=== PATIENT | female | born 2000 | race Caucasian/White ===

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

== ENCOUNTER 2018-03-10 09:23 | Emergency (ER) | payer SELFPAY ==
[~2018-03-10] VITALS: Wt 56.0 kg
[~2018-03-10 09:23] MED LIST changes: +HYDR-4011 PO; +NITR-58 PO
[2018-03-10] MEDS ORDERED: KETOROLAC 30 MG INJ IM STA (10:16)
[2018-03-10] MEDS ORDERED: HYDROCODONE/APAP (5/325) TAB PO ONE (11:00)
[2018-03-10] MEDS ORDERED: morphine 2 MG INJ IV STA (11:46)
[2018-03-10] MEDS ORDERED: SOD CHLORIDE 0.9% 1,000 ML IV ONE (12:00)
[2018-03-10] MEDS ORDERED: IBUP-1542 PO (15:14)
[2018-03-10] MEDS ORDERED: TYL500 PO (15:14)
--- NOTE | 2018-03-10 21:54 | ERD ---
ER Documentation Chief Complaint Chief Complaint AP SINCE LAST NIGHT HPI 17-year-old female presents for abdominal pain times 1 day. The pain is located in the lower part of the abdomen. She states that the pain is 10 out of 10 intermittent, described as sharp. There is associated vomiting. Denies any fevers. She has a past medical history of hypothyroidism and ovarian cyst. Denies any vaginal bleeding. No other modifying factors noted. ROS All systems reviewed and are negative except as per history of present illness. Medications Home Meds Active Scripts Acetaminophen* (Tylenol*) 500 Mg Tab, 500 MG PO Q4H PRN for MILD PAIN LEVEL 1-3, #30 TAB Prov:KELLI DEAN DO 03/10/18 Ibuprofen* (Motrin*) 600 Mg Tab, 600 MG PO Q6H PRN for PAIN AND OR ELEVATED TEMP, #30 TAB Prov:KELLI DEAN DO 03/10/18 Hydrocodone/Acetaminophen ([place] 5-325 Tablet) 1 Each Tablet, 1 TAB PO Q6H PRN for PAIN, #20 TAB Prov:KITA ELLISON PA-C 07/12/16 Nitrofurantoin Monohyd Macrocr* (Macrobid*) 100 Mg Capsr, 100 MG PO BID for 5 Days, CAP Prov:KITA ELLISON PA-C 07/12/16 Ibuprofen* (Motrin*) 600 Mg Tab, 600 MG PO Q6H PRN for PAIN AND OR ELEVATED TEMP, #30 TAB Prov:VÍCTOR CAMPBELL NP 05/25/16 Phenazopyridine Hcl* (Pyridium*) 200 Mg Tab, 200 MG PO TID PRN for URINARY PAIN, #6 TAB Prov:VÍCTOR CAMPBELL NP 05/25/16 Cephalexin* (Keflex*) 500 Mg Capsule, 500 MG PO QID for 10 Days, CAP Prov:VÍCTOR CAMPBELL NP 05/25/16 Reported Medications Levothyroxine Sodium* (Levothyroxine Sodium*) 88 Mcg Tablet, 88 MCG PO DAILY 04/10/11 Allergies Allergies: Coded Allergies: diphenhydramine (Verified Allergy, Severe, throat swells up, 03/10/18) morphine (Verified Allergy, Severe, throat swells up, 03/10/18) tramadol (Verified Allergy, Unknown, throat swelling, 03/10/18) Uncoded Allergies: iodine i.v (Allergy, Mild, rash, 04/27/16) PMhx/Soc History of Surgery: Yes (tooth extraction with general anesthesia, OVARIAN CYST REMOVED) Anesthesia Reaction: No Hx Neurological Disorder: No Hx Respiratory Disorders: No Hx Cardiac Disorders: No Hx Psychiatric Problems: No Hx Miscellaneous Medical Probl: Yes (THYROID PROBLEM) Hx Alcohol Use: No Hx Substance Use: No Hx Tobacco Use: No Smoking Status: Never smoker Physical Exam Vitals Vital Signs Date Temp Pulse Resp B/P (MAP) Pulse Ox O2 O2 Flow FiO2 Time Delivery Rate 03/10/18 98.1 90 18 121/89 99 09:30 (100) Physical Exam Const: No acute distress Resp: Clear to auscultation bilaterally Cardio: Regular rate and rhythm, no murmurs Abd: Soft, non distended. Normal bowel sounds, tenderness palpation over the bilateral lower abdomen/pelvis area, no McBurney's point tenderness, no Domingo sign, no rebound or guarding noted Skin: No petechiae or rashes Back: No midline or flank tenderness Ext: No cyanosis, or edema Neur: Awake and alert Psych: Normal Mood and Affect Results 24 hrs Laboratory Tests Test 03/10/18 10:28 03/10/18 10:31 Bedside Urine pH (LAB) >=9.0 Bedside Urine Protein (LAB) 3+ Bedside Urine Glucose (UA) Negative Bedside Urine Ketones (LAB) 1+ Bedside Urine Blood 3+ Bedside Urine Nitrite (LAB) Positive Bedside Urine Leukocyte Esterase (L Negative White Blood Count 8.7 10^3/ul Red Blood Count 5.05 10^6/ul Hemoglobin 13.1 g/dl Hematocrit 40.0 % Mean Corpuscular Volume 79.2 fl Mean Corpuscular Hemoglobin 25.9 pg Mean Corpuscular Hemoglobin Concent 32.8 g/dl Red Cell Distribution Width 12.6 % Platelet Count 207 10^3/UL Mean Platelet Volume 10.3 fl Immature Granulocytes % 0.200 % Neutrophils % 86.3 % Lymphocytes % 9.6 % Monocytes % 3.3 % Eosinophils % 0.3 % Basophils % 0.3 % Nucleated Red Blood Cells % 0.0 /100WBC Immature Granulocytes # 0.020 10^3/ul Neutrophils # 7.5 10^3/ul Lymphocytes # 0.8 10^3/ul Monocytes # 0.3 10^3/ul Eosinophils # 0.0 10^3/ul Basophils # 0.0 10^3/ul Nucleated Red Blood Cells # 0.0 10^3/ul Sodium Level 145 mmol/L Potassium Level 3.8 mmol/L Chloride Level 105 mmol/L Carbon Dioxide Level 22 mmol/L Anion Gap 18 Blood Urea Nitrogen 11 mg/dl Creatinine 0.63 mg/dl Est Glomerular Filtrat Rate mL/min > 60 mL/min Glucose Level 111 mg/dl Calcium Level 9.5 mg/dl Total Bilirubin 0.2 mg/dl Direct Bilirubin 0.00 mg/dl Indirect Bilirubin 0.2 mg/dl Aspartate Amino Transf (AST/SGOT) 24 IU/L Alanine Aminotransferase (ALT/SGPT) 26 IU/L Alkaline Phosphatase 50 IU/L Total Protein 7.8 g/dl Albumin 4.5 g/dl Globulin 3.30 g/dl Albumin/Globulin Ratio 1.36 Lipase 101 U/L Current Medications Medications Dose Sig/Betito Start Time Status Last (Trade) Ordered Route PRN Stop Time Admin Dose Reason Admin Ketorolac 30 mg ONCE STAT 03/10/18 DC Tromethamine IM 10:16 (Toradol) 03/10/18 10:44 1 tab ONCE ONCE 03/10/18 DC 03/10/18 Acetaminophen PO 11:00 10:51 / 03/10/18 11:01 Hydrocodone Bitart ([place] (5/325)) Sodium 1,000 ml @ Q1H ONCE 03/10/18 DC 03/10/18 Chloride 1,000 mls/hr IV 12:00 11:49 03/10/18 12:59 Morphine 2 mg ONCE STAT 03/10/18 DC 03/10/18 Sulfate IV 11:46 11:51 (morphine) 03/10/18 11:47 Procedures/MDM Medical Decision Making: Differential diagnosis includes but not limited to acute gastritis, acute gastroenteritis, appendicitis, cholecystitis, pancreatitis, ruptured ovarian cyst Patient appeared well on physical exam. Nontoxic appearing. There was some tenderness palpation over the lower part of the abdomen, pelvis area Labs: CBC showed no anemia, no elevated WBC to suggest infection CMP showed mildly elevated sodium of 145, otherwise no electrolyte abnormalities, there was normal kidney and liver function Lipase was normal Urine unable to be performed due to bloody urine, patient was on her menstrual period, low likelihood for UA was negative for infection Imaging: Pelvic ultrasound shows 1.7 cm in maximal diameter simple-appearing left ovarian cyst is again evident Patient ovarian cyst may be the cause of her abdominal pain. ED course: Patient was given Toradol. Patient states that she does not have allergy to low dose morphine, therefore 2mg of morphine given with some relief of pain and without allergic reaction. Patient also was given a dose of norco. Symptoms improved with treatment. Prescription(s): Patient given prescription for tylenol and motrin. Patient advised to follow up with PCP in 1-2 days. Possible need for referral to [facility] if pain persist. Patient advised to return to ED for new or worsening symptoms. Patient stable on discharge from the ED. Disclaimer: Inadvertent spelling and grammatical errors are likely due to EHR/dictation software use and do not reflect on the overall quality of patient care. Also, please note that the electronic time recorded on this note does not necessarily reflect the actual time of the patient encounter. Departure Diagnosis: Primary Impression: Abdominal pain Additional Impression: Ovarian cyst Laterality: left Qualified Codes: N83.202 - Unspecified ovarian cyst, left side Condition: Fair Patient Instructions: Abdominal Pain Referrals: [facility] YOU HAVE RECEIVED A MEDICAL SCREENING EXAM AND THE RESULTS INDICATE THAT YOU DO NOT HAVE A CONDITION THAT REQUIRES URGENT TREATMENT IN THE EMERGENCY DEPARTMENT. FURTHER EVALUATION AND TREATMENT OF YOUR CONDITION CAN WAIT UNTIL YOU ARE SEEN IN YOUR DOCTORS OFFICE WITHIN THE NEXT 1-2 DAYS. IT IS YOUR RESPONSIBILITY TO MAKE AN APPOINTMENT FOR FOLOW-UP CARE. IF YOU HAVE A PRIMARY DOCTOR --you should call your primary doctor and schedule an appointment IF YOU DO NOT HAVE A PRIMARY DOCTOR YOU CAN CALL OUR PHYSICIAN REFERRAL HOTLINE AT IF YOU CAN NOT AFFORD TO SEE A PHYSICIAN YOU CAN CHOSE FROM THE FOLLOWING [facility] [address] [facility]. [facility] [address] [facility] [address] [facility] [address] [facility]. [facility] [address] [facility] [facility]. [address] Additional Instructions: Call your primary care doctor TOMORROW for an appointment during the next 1-2 days.See the doctor sooner or return here if your condition worsens before your appointment time. KELLI DEAN DO Mar 10, 2018 21:54
== END 2018-03-10 15:23 | disposition home or self-care (01) ==
LOC: FTE 09:23
DX: N83.202 Unspecified ovarian cyst, left side (principal)
CPT/HCPCS: 76856; 80053; 81003; 83690; 85025; J2270; J7030; 36415; 96374

== ENCOUNTER 2018-05-03 10:45 | Emergency (ER) | payer SELFPAY ==
[~2018-05-03] VITALS: Ht 170.2 cm; Wt 56.1 kg
[~2018-05-03 10:45] MED LIST changes: +TYL500 PO
[2018-05-03 11:11] VITALS: Ht 170.2 cm; Wt 56.1 kg
[2018-05-03] MEDS ORDERED: IBUP800T48 PO (12:51)
--- NOTE | 2018-05-03 12:59 | ERD ---
ER Documentation Chief Complaint Chief Complaint Complains of vomiting and abdominal pain x 3 days HPI 17-year-old female presenting with vomiting abdominal pain times 3 days. Patient has pain associated with menstraul cycle. History of ovarian cyst. Positive vomiting. History of thyroid problems. Allergies to Morphine. Social history denies. Surgical history denies. ROS All systems reviewed and are negative except as per history of present illness. Medications Home Meds Active Scripts Ibuprofen* (Motrin*) 800 Mg Tab, 800 MG PO Q6, #30 TAB Prov:GANESH BILLINGS PA-C 05/03/18 Acetaminophen* (Tylenol*) 500 Mg Tab, 500 MG PO Q4H PRN for MILD PAIN LEVEL 1-3, #30 TAB Prov:KELLI DEAN DO 03/10/18 Ibuprofen* (Motrin*) 600 Mg Tab, 600 MG PO Q6H PRN for PAIN AND OR ELEVATED TEMP, #30 TAB Prov:KELLI DEAN DO 03/10/18 Hydrocodone/Acetaminophen ([place] 5-325 Tablet) 1 Each Tablet, 1 TAB PO Q6H PRN for PAIN, #20 TAB Prov:KITA ELLISON PA-C 07/12/16 Nitrofurantoin Monohyd Macrocr* (Macrobid*) 100 Mg Capsr, 100 MG PO BID for 5 Days, CAP Prov:KITA ELLISON PA-C 07/12/16 Ibuprofen* (Motrin*) 600 Mg Tab, 600 MG PO Q6H PRN for PAIN AND OR ELEVATED TEMP, #30 TAB Prov:VÍCTOR CAMPBELL NP 05/25/16 Phenazopyridine Hcl* (Pyridium*) 200 Mg Tab, 200 MG PO TID PRN for URINARY PAIN, #6 TAB Prov:VÍCTOR CAMPBELL NP 05/25/16 Cephalexin* (Keflex*) 500 Mg Capsule, 500 MG PO QID for 10 Days, CAP Prov:VÍCTOR CAMPBELL NP 05/25/16 Reported Medications Levothyroxine Sodium* (Levothyroxine Sodium*) 88 Mcg Tablet, 88 MCG PO DAILY 04/10/11 Allergies Allergies: Coded Allergies: diphenhydramine (Verified Allergy, Severe, throat swells up, 03/10/18) morphine (Verified Allergy, Severe, throat swells up, 03/10/18) tramadol (Verified Allergy, Unknown, throat swelling, 03/10/18) Uncoded Allergies: iodine i.v (Allergy, Mild, rash, 04/27/16) PMhx/Soc History of Surgery: Yes (tooth extraction with general anesthesia, OVARIAN CYST REMOVED) Anesthesia Reaction: No Hx Neurological Disorder: No Hx Respiratory Disorders: No Hx Cardiac Disorders: No Hx Psychiatric Problems: No Hx Miscellaneous Medical Probl: Yes (THYROID PROBLEM) Hx Alcohol Use: No Hx Substance Use: No Hx Tobacco Use: No FmHx Family History: No diabetes, No coronary disease, No other Physical Exam Vitals Vital Signs Date Temp Pulse Resp B/P (MAP) Pulse Ox O2 O2 Flow FiO2 Time Delivery Rate 05/03/18 97.5 69 20 117/81 99 11:11 (93) Physical Exam GENERAL: The patient is well-appearing, well-nourished, in no acute distress HEENT: Atraumatic. Conjunctivae are pink. Pupils equal, round, and reactive to light. There is no scleral icterus. Tympanic membranes clear bilaterally. Oropharynx clear. NECK: C-spine is soft and supple. There is no meningismus. There is no cervical lymphadenopathy. CHEST: Clear to auscultation bilaterally. There are no rales, wheezes or rhonchi. HEART: Regular rate and rhythm. No murmurs, clicks, rubs or gallops. No S3 or S4. ABDOMEN:Soft, nontender and nondistended. Good bowel sounds. No rebound or guarding. No gross peritonitis. No gross organomegaly or masses. Procedures/MDM MDM: 17 yr old female complaining of abdominal pain. Patient does not want any medications and does not want a work up in the ER. Exam is non concerning. Patient is discharged with strict ER precations and told to return if symptoms change or worsen. All questions answered at discharge. Departure Diagnosis: Primary Impression: Abdominal pain Condition: Stable Patient Instructions: Abdominal Pain Referrals: [facility] YOU HAVE RECEIVED A MEDICAL SCREENING EXAM AND THE RESULTS INDICATE THAT YOU DO NOT HAVE A CONDITION THAT REQUIRES URGENT TREATMENT IN THE EMERGENCY DEPARTMENT. FURTHER EVALUATION AND TREATMENT OF YOUR CONDITION CAN WAIT UNTIL YOU ARE SEEN IN YOUR DOCTORS OFFICE WITHIN THE NEXT 1-2 DAYS. IT IS YOUR RESPONSIBILITY TO MAKE AN APPOINTMENT FOR FOLOW-UP CARE. IF YOU HAVE A PRIMARY DOCTOR --you should call your primary doctor and schedule an appointment IF YOU DO NOT HAVE A PRIMARY DOCTOR YOU CAN CALL OUR PHYSICIAN REFERRAL HOTLINE AT IF YOU CAN NOT AFFORD TO SEE A PHYSICIAN YOU CAN CHOSE FROM THE FOLLOWING [facility] [address] [facility] [address] [facility] [facility] [address] [facility] [address] [facility] [address] [facility] [address] [facility]. [facility] [address] Additional Instructions: FOLLOW UP WITH YOUR PRIMARY CARE PHYSICIAN TOMORROW.Return to this facility if you are not improving as expected. GANESH BILLINGS PA-C May 03, 2018 12:59
[2018-05-03 13:10] VITALS: BP 116/72; PULSE 92; RESP 18
== END 2018-05-03 13:48 | disposition home or self-care (01) ==
LOC: FTE 10:45
DX: R10.9 Unspecified abdominal pain (principal); R11.10 Vomiting, unspecified
CPT/HCPCS: 99282